=== PATIENT | male | born 1960 | race Caucasian/White ===

== ENCOUNTER 2021-12-04 11:07 | Outpatient (RCR) | payer MEDICARE, MEDICAID, SELFPAY | END 2022-01-23 11:04 | disposition home or self-care (01) | PROVIDERS: PCP Surgery; Visit Provider Physician Assistant Medical | DX: R26.9 Unspecified abnormalities of gait and mobility (principal); Z51.89 Encounter for other specified aftercare | CPT/HCPCS: 97110; 97162 ==